=== PATIENT | female | born 1975 | race Caucasian/White ===

== ENCOUNTER 2019-12-03 23:34 | Emergency (ER) | payer OTHER ==
[~2019-12-03] VITALS: Ht 162.6 cm; Wt 76.7 kg
[2019-12-04 00:17] LABS: HEMOGLOBIN 12.8 G/DL (11.5-16.0); MEAN PLATELET VOLUME 9.5 FL (7.4-10.4); RED CELL DISTRIBUTION WIDTH 12.5 % (10.0-14.5); WHITE BLOOD COUNT 6.3 10^3/uL (4.3-11.0)
[2019-12-04 00:19] LABS: BILIRUBIN,URINE NEGATIVE (NEGATIVE); CLARITY,URINE CLOUDY; COLOR,URINE RED; GLUCOSE, URINE (UA) NEGATIVE (NEGATIVE); KETONES,URINE NEGATIVE (NEGATIVE); LEUKOCYTE ESTERASE ,URINE NEGATIVE (NEGATIVE); NITRITE,URINE NEGATIVE (NEGATIVE); PH,URINE 5.5 (5-9); PROTEIN,URINE 2+ (NEGATIVE)
[2019-12-04 00:28] LABS: INR 0.8 (0.8-1.4); PROTHROMBIN TIME PATIENT 11.7 SEC (12.2-14.7)
[2019-12-04 00:28] LABS: BACTERIA,URINE NEGATIVE /HPF; RBC,URINE TNTC /HPF
[2019-12-04 00:35] LABS: ALANINE AMINOTRANSFERASE 19 U/L (0-55); ALBUMIN 4.1 GM/DL (3.2-4.5); ALKALINE PHOSPHATASE 85 U/L (40-136); BILIRUBIN,TOTAL 0.2 MG/DL (0.1-1.0); BUN/CREATININE RATIO 16; CALCIUM 8.9 MG/DL (8.5-10.1); CARBON DIOXIDE 20 MMOL/L (21-32); CHLORIDE 108 MMOL/L (98-107); CREATININE SERUM 0.91 MG/DL (0.60-1.30); GFR ESTIMATED > 60; GLUCOSE 117 MG/DL (70-105); SODIUM 139 MMOL/L (135-145); TOTAL PROTEIN 7.6 GM/DL (6.4-8.2)
--- NOTE | 2019-12-04 00:42 | ED GU-Female ---
General Chief Complaint: Female Reproductive Stated Complaint: 25 DAYS OF PERIODS Nursing Triage Note: Pt ambulates to room #9 with c/o abnormal vaginal bleeding et intermittent abd cramping. Pt reports her menstrual cycle began on 12/16/19 et continues to this day. Pt reports persistant heavy menstrual flow. Pt reports to have used x4 maxi pads throughout this day. Pt denies being light headed or dizzy. A&OX4. Nursing Sepsis Screen: No Definite Risk Allergies and Home Medications Allergies Coded Allergies: No Known Drug Allergies (Unverified , 12/04/19) Past Xsqbhdr-Qotvfn-Erucog Hx Patient Social History Alcohol Use: Denies Use Recreational Drug Use: No Smoking Status: Former Smoker Former Smoker, Quit: Apr 11, 1999 2nd Hand Smoke Exposure: No Recent Foreign Travel: No Contact w/Someone Who Travel: No Recent Infectious Disease Expo: No Recent Hopitalizations: No Physical Abuse: No Sexual Abuse: No Seasonal Allergies Seasonal Allergies: No Past Medical History Surgeries: Yes Tubal Ligation Respiratory: No Cardiac: No Neurological: No Genitourinary: No Gastrointestinal: Yes Gastroesophageal Reflux Musculoskeletal: No Endocrine: No HEENT: No Cancer: No Psychosocial: No Integumentary: No Physical Exam Vital Signs Vital Signs - First Documented 12/03/19 23:58 Temp 37.0 Pulse 94 Resp 18 B/P (MAP) 174/98 (123) Pulse Ox 99 O2 Delivery Room Air Capillary Refill : Less Than 3 Seconds Height, Weight, BMI Height: '" Weight: lbs. oz. kg; 29.00 BMI Method: Progress/Results/Core Measures Suspected Sepsis Recent Fever Within 48 Hours: No Infection Criteria Present: None New/Unexplained Altered Menta: No Sepsis Screen: No Definite Risk SIRS Temperature: Pulse: 94 Respiratory Rate: 18 Laboratory Tests 12/04/19 00:10: White Blood Count 6.3 Blood Pressure 174 /98 Mean: 123 Laboratory Tests 12/04/19 00:10: Creatinine 0.91, INR Comment 0.8, Platelet Count 352, Total Bilirubin 0.2 Results/Orders Lab Results Laboratory Tests Test 12/04/19 00:07 12/04/19 00:10 Range/Units Urine Color RED H Urine Clarity CLOUDY Urine pH 5.5 5-9 Urine Specific Santa [place] 1.025 H 1.016-1.022 Urine Protein 2+ H NEGATIVE Urine Glucose (UA) NEGATIVE NEGATIVE Urine Ketones NEGATIVE NEGATIVE Urine Nitrite NEGATIVE NEGATIVE Urine Bilirubin NEGATIVE NEGATIVE Urine Urobilinogen 0.2 < = 1.0 MG/DL Urine Leukocyte Esterase NEGATIVE NEGATIVE Urine RBC (Auto) 3+ H NEGATIVE Urine RBC TNTC H /HPF Urine WBC NONE /HPF Urine Squamous Epithelial Cells 2-5 /HPF Urine Crystals NONE /LPF Urine Bacteria NEGATIVE /HPF Urine Casts NONE /LPF Urine Mucus NEGATIVE /LPF Urine Culture Indicated NO White Blood Count 6.3 4.3-11.0 10^3/uL Red Blood Count 4.20 L 4.35-5.85 10^6/uL Hemoglobin 12.8 11.5-16.0 G/DL Hematocrit 38 35-52 % Mean Corpuscular Volume 90 80-99 FL Mean Corpuscular Hemoglobin 30 25-34 PG Mean Corpuscular Hemoglobin Concent 34 32-36 G/DL Red Cell Distribution Width 12.5 10.0-14.5 % Platelet Count 352 130-400 10^3/uL Mean Platelet Volume 9.5 7.4-10.4 FL Prothrombin Time 11.7 L 12.2-14.7 SEC INR Comment 0.8 0.8-1.4 Activated Partial Thromboplast Time 32 24-35 SEC Sodium Level 139 135-145 MMOL/L Potassium Level 4.0 3.6-5.0 MMOL/L Chloride Level 108 H 98-107 MMOL/L Carbon Dioxide Level 20 L 21-32 MMOL/L Anion Gap 11 5-14 MMOL/L Blood Urea Nitrogen 15 7-18 MG/DL Creatinine 0.91 0.60-1.30 MG/DL Estimat Glomerular Filtration Rate > 60 BUN/Creatinine Ratio 16 Glucose Level 117 H 70-105 MG/DL Calcium Level 8.9 8.5-10.1 MG/DL Corrected Calcium 8.8 8.5-10.1 MG/DL Total Bilirubin 0.2 0.1-1.0 MG/DL Aspartate Amino Transf (AST/SGOT) 17 5-34 U/L Alanine Aminotransferase (ALT/SGPT) 19 0-55 U/L Alkaline Phosphatase 85 40-136 U/L Total Protein 7.6 6.4-8.2 GM/DL Albumin 4.1 3.2-4.5 GM/DL Serum Test, Qualitative NEGATIVE NEGATIVE My Orders Orders - RIKI BUENO DO Cbc No Diff (12/03/19 23:53) Hcg,Qualitative Serum (12/03/19 23:53) Protime With Inr (12/03/19 23:53) Partial Thromboplastin Time (12/03/19 23:53) Comprehensive Metabolic Panel (12/04/19 00:02) Ua Culture If Indicated (12/04/19 00:02) Vital Signs/I&O 12/03/19 23:58 Temp 37.0 Pulse 94 Resp 18 B/P (MAP) 174/98 (123) Pulse Ox 99 O2 Delivery Room Air Capillary Refill : Less Than 3 Seconds Blood Pressure Mean: 123 Progress Note : Progress Note NO CRAMPING OR EXCESSIVE BLEEDING DURING ER STAY DID NOT USE ANY PADS OR PASS ANY CLOTS DURING ER STAY Departure Impression Primary Impression: Menometrorrhagia Disposition: HOME, SELF-CARE Condition: Stable Departure-Patient Inst. Referrals: NO,LOCAL PHYSICIAN (PCP) Primary Care Physician [facility] Patient Instructions: Heavy Periods (DC), IRREGULAR VAGINAL BLEEDING Add. Discharge Instructions: LOTS OF CLEAR LIQUIDS FOLLOW UP WITH [facility] THIS WEEK FOR FURTHER CARE All discharge instructions reviewed with patient and/or family. Voiced understanding. Scripts Ondansetron (Ondansetron Odt) 4 Mg Tab.rapdis 4 MG PO Q4H for Nausea/Vomiting, #10 TAB Prov: RIKI BUENO DO 12/04/19 Norethindrone-Ethinyl Estrad (Ortho-Novum 1-35-28 Tablet) 1 Each Tablet 4 EACH PO DAILY, #1 UNIT Prov: RIKI BUENO DO 12/04/19 RIKI BUENO DO Dec 04, 2019 00:41
[2019-12-04] MEDS ORDERED: NORE1TAB4 PO (00:44)
[2019-12-04] MEDS ORDERED: ONDA4TAB11 PO (00:44)
[2019-12-04 00:52] VITALS: BP 154/92
== END 2019-12-04 00:52 | disposition home or self-care (01) ==
LOC: ER 23:43
DX: N92.1 Excessive and frequent menstruation with irregular cycle (principal); Z87.891 Personal history of nicotine dependence
CPT/HCPCS: 36415; 80053; 81000; 84703; 85027; 85610; 85730

== ENCOUNTER 2021-05-02 20:26 | Emergency (ER) | payer OTHER ==
[~2021-05-02] VITALS: Ht 163 cm; Wt 76.2 kg
[~2021-05-02 20:26] MED LIST: NORE1TAB4 PO; ONDA4TAB11 PO
--- OUTSIDE RECORDS SUMMARY | 2021-05-02 20:31 | XMS REPORT | Clinical Summary ---
Author Author [facility] Organization [facility] Address Unknown Phone Unavailable Care Team Providers Care Insulation Engineman Name Role Phone Tato Deutsch MD PCP Source Comments [facility]) documents do not appear in the [facility] Allergies Comments Active Allergy Reactions Severity Noted Date Stomach cramps Aspirin Unknown 09/10/2016 Medications * Please verify current medications with patient. End Date Status Medication Sig Dispensed Refills Start Date Active omeprazole magnesium 1 daily 30 tablet 1 05/18 (PRILOSEC) 20 mg delayed 4 release tabletIndications: GERD (gastroesophageal reflux disease) Active Problems No known active problems Immunizations Name Administration Dates Next Due TDAP VACCINE =>7YO IM 09/10/2016 ADSORBED Family History Medical History Relation Comments Bipolar disorder Mother Crohn's disease Mother Hypothyroidism Mother Hypothyroidism Sister 1 Ovarian cancer Sister 1 Ovarian cancer Sister 2 Relation Status Comments Mother Sister 1 Sister 2 Social History Date Tobacco Use Types Packs/Day Years Used Never Smoker Smokeless Tobacco: Never Used Tobacco Cessation: Counseling Given: Yes Comments Alcohol Use Standard Drinks/Week No 0 (1 standard drink = 0.6 o z pure alcohol) Sex Assigned at Date Recorded Not on file Last Filed Vital Signs Reading Time Taken Comments Vital Sign 120/80 09/10/2016 12:21 PM MDT Blood Pressure 86 09/10/2016 12:21 PM MDT Pulse 36.4 C (97.6 F) 09/10/2016 12:21 PM MDT Temperature 16 09/10/2016 12:21 PM MDT Respiratory Rate 94% 09/10/2016 12:21 PM MDT Oxygen Saturation - - Inhaled Oxygen Concentration 72.1 kg (159 lb) 09/10/2016 12:21 PM MDT Weight 162.6 cm (5' 4") 09/10/2016 12:21 PM MDT Height 27.29 09/10/2016 12:21 PM MDT Body Mass Index Plan of Treatment Health Maintenance Due Date Last Done Comments Cervical Cancer Screening 1975 HPV/Cotest 1975 Pap Smear 1976 COVID-19 Vaccine (1) 1981 Influenza Vaccine (#1) 2020 HPV Vaccine Aged Out No longer eligible based on patient's age to complete this topic Hepatitis A Vaccine Aged Out No longer eligible based on patient's age to complete this topic Hepatitis B Vaccine Aged Out No longer eligible based on patient's age to complete this topic Hib Vaccine Aged Out No longer eligible based on patient's age to complete this topic IPV Vaccine Aged Out No longer eligible based on patient's age to complete this topic Meningococcal Vaccine Aged Out No longer eligib le based on patient's age to (MCV4) complete this topic Pneumococcal Vaccine: Aged Out No longer eligib le based on patient's age to Pediatrics (0 to 5 Years) complete this topic and At-Risk Patients (6 to 64 Years) Rotavirus Vaccine Aged Out No longer eligible based on patient's age to complete this topic Results Not on filefrom Last 3 Months Insurance Type Payer Benefit Subscriber ID Effective Phone Address Plan / Dates Group [facility] [id number] 2017- [phone] [address] Present [address] [place] [address] [facility] [id number] 2017- [phone] [address]/NA Present [address] [place] [id number] [address] Samla Leavitt Personal/F Self [address] am[place] (Home) [place], [place] [address] Advance 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
--- NOTE | 2021-05-02 20:50 | ED EENT ---
History of Present Illness General Chief Complaint: Oral/Throat Problems Stated Complaint: LUMP IN THROAT AND TROUBLE BREATHING Nursing Triage Note: PT REPORTS FEELING LIKE SHE HAS A LUMP IN HER LOWER THROAT X2 WEEKS. C/O FEELING SOA X1 DAY WORSE TONIGHT. DENIES DIFFICULTY SWALLOWING/EATING. Source: patient Exam Limitations: no limitations History of Present Illness Date Seen by Provider: May 02, 2021 Time Seen by Provider: 20:29 Initial Comments This is a well-appearing 45-year-old female who presented to the ER via POV with complaints of throat discomfort for the past 2 weeks. States that it feels like there is a sound in the front of her throat that makes it feel difficult to breathe and short of breath when she attempts to lay flat. Tonight she was having worsening symptoms so she decided to seek evaluation and treatment. She denies difficulty swallowing/eating, no pain with eating. No fever, chills, cough, chest pain, nausea, vomiting, diarrhea, abdominal pain. Allergies and Home Medications Allergies Coded Allergies: No Known Drug Allergies (Unverified , 12/04/19) Patient Home Medication List Home Medication List Reviewed: Yes Discontinued Medications Norethindrone-Ethinyl Estrad (Ortho-Novum 1-35-28 Tablet) 1 Each Tablet, 4 EACH PO DAILY Discontinued Reason: No Longer Taking Prescribed by: RIKI BUENO on 12/04/1942 Last Action: Discontinued Ondansetron (Ondansetron Odt) 4 Mg Tab.rapdis, 4 MG PO Q4H Discontinued Reason: No Longer Taking Prescribed by: RIKI BUENO on 12/04/1942 Last Action: Discontinued Review of Systems Review of Systems Constitutional: no symptoms reported Eyes: No Symptoms Reported Ears: No Symptoms Reported Nose: no symptoms reported Mouth: see HPI Throat: see HPI Respiratory: no symptoms reported Cardiovascular: no symptoms reported Gastrointestinal: no symptoms reported Skin: no symptoms reported Neurological: No Symptoms Reported Hematologic/Lymphatic: No Symptoms Reported Immunological/Allergic: no symptoms reported Past Fsnscmt-Jxhblg-Poxrio Hx Patient Social History Tobacco Use?: No Smoking Status: Former Smoker Substance use?: No Alcohol Use?: Yes Alcohol Frequency: Once in a while Pt feels they are or have been: No Seasonal Allergies Seasonal Allergies: No Past Medical History Surgery/Hospitalization HX: D&C, TUBAL, LEFT REANL DIVERTICULUM, GERD, MENSTRUAL PROBLEMS. Surgeries: Yes (D&C X 2) Tubal Ligation Respiratory: No Cardiac: No Neurological: No Genitourinary: Yes (LEFT KIDNEY DIVERTICULUM ) Gastrointestinal: Yes Gastroesophageal Reflux Musculoskeletal: No Endocrine: No HEENT: No Cancer: No Psychosocial: No Integumentary: No Physical Exam Vital Signs Vital Signs - First Documented 05/02/21 20:32 Temp 36.8 Pulse 109 Resp 18 B/P (MAP) 168/81 (110) Pulse Ox 98 O2 Delivery Room Air Height, Weight, BMI Height: '" Weight: lbs. oz. kg; 28.00 BMI Method: General Appearance: WD/WN, no apparent distress Eyes: bilateral eye normal inspection, bilateral eye PERRL, bilateral eye EOMI Nose: normal inspection; No discharge Mouth/Throat: normal mouth inspection, pharynx normal; No excessive drooling, No foreign body, No tongue swollen, No uvula swelling Neck: full range of motion, supple, normal inspection; No limited range of motion Cardiovascular: regular rate, rhythm, no murmur Respiratory: lungs clear, normal breath sounds, no respiratory distress, no accessory muscle use Gastrointestinal: normal bowel sounds, non tender, soft Neurologic/Psychiatric: no motor/sensory deficits, alert, normal mood/affect, oriented x 3 Skin: normal color, warm/dry Progress/Results/Core Measures Results/Orders Lab Results Laboratory Tests Test 05/02/21 20:53 Range/Units White Blood Count 4.5 4.3-11.0 10^3/uL Red Blood Count 3.14 L 3.80-5.11 10^6/uL Hemoglobin 7.9 L 11.5-16.0 g/dL Hematocrit 26 L 35-52 % Mean Corpuscular Volume 83 80-99 fL Mean Corpuscular Hemoglobin 25 25-34 pg Mean Corpuscular Hemoglobin Concent 30 L 32-36 g/dL Red Cell Distribution Width 14.8 H 10.0-14.5 % Platelet Count 268 130-400 10^3/uL Mean Platelet Volume 9.5 9.0-12.2 fL Immature Granulocyte % (Auto) 0 % Neutrophils (%) (Auto) 55 42-75 % Lymphocytes (%) (Auto) 34 12-44 % Monocytes (%) (Auto) 9 0-12 % Eosinophils (%) (Auto) 1 0-10 % Basophils (%) (Auto) 0 0-10 % Neutrophils # (Auto) 2.5 1.8-7.8 10^3/uL Lymphocytes # (Auto) 1.5 1.0-4.0 10^3/uL Monocytes # (Auto) 0.4 0.0-1.0 10^3/uL Eosinophils # (Auto) 0.1 0.0-0.3 10^3/uL Basophils # (Auto) 0.0 0.0-0.1 10^3/uL Immature Granulocyte # (Auto) 0.0 0.0-0.1 10^3/uL Sodium Level 138 135-145 MMOL/L Potassium Level 3.3 L 3.6-5.0 MMOL/L Chloride Level 108 H 98-107 MMOL/L Carbon Dioxide Level 21 21-32 MMOL/L Anion Gap 9 5-14 MMOL/L Blood Urea Nitrogen 10 7-18 MG/DL Creatinine 0.82 0.60-1.30 MG/DL Estimat Glomerular Filtration Rate 90 BUN/Creatinine Ratio 12 Glucose Level 123 H 70-105 MG/DL Calcium Level 8.7 8.5-10.1 MG/DL Corrected Calcium 9.1 8.5-10.1 MG/DL Total Bilirubin 0.2 0.1-1.0 MG/DL Aspartate Amino Transf (AST/SGOT) 40 H 5-34 U/L Alanine Aminotransferase (ALT/SGPT) 53 0-55 U/L Alkaline Phosphatase 100 40-136 U/L Total Protein 6.6 6.4-8.2 GM/DL Albumin 3.5 3.2-4.5 GM/DL My Orders Orders - ZOILA WETZEL CENTRAL OFFICE SUPERVISOR Ed Iv/Invasive Line Start (05/02/21 20:46) Cbc With Automated Diff (05/02/21 20:46) Comprehensive Metabolic Panel (05/02/21 20:46) Ct Neck (Soft Tissue) W (05/02/21 20:46) Iohexol Injection (Omnipaque 350 Mg/Ml 1 (05/02/21 21:15) Received Contrast (Hold Metformin- Contr (05/02/21 21:15) Ns (Ivpb) (Sodium Chloride 0.9% Ivpb Bag (05/02/21 21:15) Medications Given in ED Current Medications Medications Dose Ordered Sig/Nena Route Start Time Stop Time Status Last Admin Dose Admin Iohexol 100 ml ONCE ONCE IV 05/02/21 21:15 05/02/21 21:16 DC 05/02/21 21:08 75 ML Sodium Chloride 100 ml ONCE ONCE IV 05/02/21 21:15 05/02/21 21:16 DC 05/02/21 21:09 80 ML Vital Signs/I&O 05/02/21 20:32 Temp 36.8 Pulse 109 Resp 18 B/P (MAP) 168/81 (110) Pulse Ox 98 O2 Delivery Room Air Blood Pressure Mean: 110 Departure Impression Primary Impression: Globus sensation Additional Impressions: Anemia GERD (gastroesophageal reflux disease) Disposition: HOME, SELF-CARE Condition: Improved Departure-Patient Inst. Decision time for Depature: 21:37 Referrals: NO,LOCAL PHYSICIAN (PCP/Family) Primary Care Physician Patient Instructions: Anemia of Inflammation (DC), LOCAL PHYSICIAN LIST Add. Discharge Instructions: Plan: 1. Take Ibuprofen 600mg every 6 hours as needed for pain. Take with food. 2. Establish with primary care provider later this week and have your hemoglobin level rechecked. 3. Take an iron tablet daily. 4. Take Pantoprazole 20mg daily before food. 5. Return for any new, concerning, or worsening symptoms. All discharge instructions reviewed with patient and/or family. Voiced understanding. Scripts Pantoprazole Sodium (Pantoprazole Sodium) 20 Mg Tablet. 20 MG PO DAILY for 30 Days, #30 TAB 0 Refills Prov: ZOILA WETZEL CENTRAL OFFICE SUPERVISOR 05/02/21 ZOILA WETZEL CENTRAL OFFICE SUPERVISOR May 02, 2021 20:50
[2021-05-02 21:04] LABS: BASOPHILS % (AUTO) 0 % (0-10); EOSINOPHILS # (AUTO) 0.1 10^3/uL (0.0-0.3); EOSINOPHILS % (AUTO) 1 % (0-10); HEMATOCRIT 26 % (35-52); HEMOGLOBIN 7.9 g/dL (11.5-16.0); LYMPHOCYTES # (AUTO) 1.5 10^3/uL (1.0-4.0); LYMPHOCYTES % (AUTO) 34 % (12-44); MEAN CORPUSCULAR HEMOGLOBIN 25 pg (25-34); MEAN CORPUSCULAR HGB CONC 30 g/dL (32-36); MEAN CORPUSCULAR VOLUME 83 fL (80-99); MEAN PLATELET VOLUME 9.5 fL (9.0-12.2); MONOCYTES # (AUTO) 0.4 10^3/uL (0.0-1.0); MONOCYTES % (AUTO) 9 % (0-12); NEUTROPHILS # (AUTO) 2.5 10^3/uL (1.8-7.8); NEUTROPHILS % (AUTO) 55 % (42-75); PLATELET COUNT 268 10^3/uL (130-400); WHITE BLOOD COUNT 4.5 10^3/uL (4.3-11.0)
[2021-05-02] MEDS ORDERED: IOHEXOL 350 MG/ML 100 ML (OMNIPAQUE 350) VIAL IV ONE (21:15)
[2021-05-02] MEDS ORDERED: NS 100 ML (IVPB) BAG IV ONE (21:15)
[2021-05-02] MEDS ORDERED: HOLD METFORMIN - RECEIVED CONTRAST 20 ML VIAL IV SCH (21:15)
[2021-05-02 21:20] LABS: ALBUMIN 3.5 GM/DL (3.2-4.5); BILIRUBIN,TOTAL 0.2 MG/DL (0.1-1.0); CALCIUM 8.7 MG/DL (8.5-10.1); CREATININE SERUM 0.82 MG/DL (0.60-1.30); POTASSIUM 3.3 MMOL/L (3.6-5.0); TOTAL PROTEIN 6.6 GM/DL (6.4-8.2)
--- NOTE | 2021-05-02 21:20 | Diagnostic Imaging Report ---
PROCEDURE: CT neck soft tissue with contrast. TECHNIQUE: Multiple contiguous axial images were obtained through the neck after the administration of contrast. Auto Exposure Controls were utilized during the CT exam to meet ALARA standards for radiation dose reduction. INDICATION: Lump in throat, difficulty swallowing. FINDINGS: The epiglottis and aryepiglottic folds are normal. Structures of the larynx are normal. The infra-laryngeal trachea is widely patent. No opaque foreign body or retained foodstuffs. The prevertebral and retropharyngeal spaces unremarkable. No cervical abscess, hematoma or acute fluid collection. Parotid, submandibular and thyroid glands are unremarkable. The superior mediastinum, thoracic inlet and visualized pulmonary apices unremarkable. The bony structures appear nonacute. The visualized intracranial contents, orbits and visualized sinuses nonacute. There is no mastoid effusion. IMPRESSION: Unremarkable soft tissue neck CT. No obstruction, foreign body, abscess, inflammatory process or acute abnormality. Dictated by: Dictated on workstation # [id number]
[2021-05-02] MEDS ORDERED: PANT20TA18 PO (21:48)
[2021-05-02] MEDS ORDERED: KETOROLAC 30 MG/ML VIAL IVP ONE (22:00)
[2021-05-02 22:07] VITALS: BP 137/82
== END 2021-05-02 22:10 | disposition home or self-care (01) ==
LOC: EDUNIT# 20:26 → ER 20:28
DX: F45.8 Other somatoform disorders (principal); D64.9 Anemia, unspecified; K21.9 Gastro-esophageal reflux disease without esophagitis; Z87.891 Personal history of nicotine dependence
CPT/HCPCS: 36415; 70491; 80053; 85025

== ENCOUNTER → 2021-08-10 | Outpatient (CLI) | payer OTHER ==
[~2021-08-10] MED LIST changes: +PANT20TA18 PO
--- NOTE | 2021-08-10 11:56 | Diagnostic Imaging Report ---
PROCEDURE: US Non-ob pelvis comp/trans. TECHNIQUE: Multiple realtime grayscale images were obtained of the pelvis in various projections endovaginally. Transabdominal imaging was also performed. INDICATION: Abnormal uterine bleeding. FINDINGS: Uterus measures 9 x 4.5 x 5.6 cm. There is echogenic mass in the fundus measuring 2.8 cm consistent with fibroid. Endometrial stripe is 9 mm. There are multiple cervical cysts. Right ovary measures 2.4 x 1.4 x 1.8 cm. Left ovary measures 3 x 1.5 x 3.4 cm. There are follicles present bilaterally. There is normal blood flow to both ovaries. There is no free fluid. IMPRESSION: 1. Fundal myometrial mass consistent with uterine fibroid measuring 2.8 cm. 2. Multiple nabothian cysts in the cervix. 3. Normal-appearing follicular cysts within the ovaries. Dictated by: Dictated on workstation # [id number]
== END ==
LOC: RAD 10:00
PROVIDERS: ATTEND Obstetrics & Gynecology
DX: N88.8 Other specified noninflammatory disorders of cervix uteri (principal)
CPT/HCPCS: 76830; 76856